=== PATIENT | female | born 1950 | race Two or more races ===

== ENCOUNTER 2021-12-18 09:01 | Outpatient (CLI) | payer OTHER | END 2021-12-18 09:04 | disposition home or self-care (01) | LOC: SONOGRAMA 09:01 | PROVIDERS: ATTEND Pathology Anatomic Pathology & Clinical Pathology | DX: E04.2 Nontoxic multinodular goiter (principal); E06.5 Other chronic thyroiditis; E04.9 Nontoxic goiter, unspecified ==